=== PATIENT | female | born 1985 | race Caucasian/White ===

== ENCOUNTER 2018-06-28 07:15 | Emergency (ER) | payer OTHER ==
[2018-06-28] MEDS ORDERED: DIPHENHYDRAMINE HCL 50 MG/ML VIAL IV ONE (07:56)
[2018-06-28] MEDS ORDERED: CEFTRIAXONE INJ 1000 MG VIAL IV ONE (07:56)
[2018-06-28] MEDS ORDERED: NORMAL SALINE 1000 ML 1,000 ML IV ONE (07:58)
[2018-06-28] MEDS ORDERED: FENTANYL CITRATE INJ/PF 100 MCG/2 ML AMPUL IV ONE (08:00)
--- NOTE | 2018-06-28 08:39 | ER Document Report ---
HPI - HPI Patient complains to provider of: Dental pain, nausea and vomiting Time Seen by Provider: 06/28/18 07:44 Onset: Yesterday Onset/Duration: Worse Quality of pain: Sharp Pain Level: 5 Context: Patient presents complaining of dental pain from a fractured tooth to the right upper jaw. Patient states that she did go to an urgent care recently and was given a prescription for tramadol and amoxicillin. Patient complains of nausea and vomiting and is unable to keep her medications down. Patient denies any fever or facial swelling. Associated Symptoms: Earache, Nausea, Vomiting, Other - Dental pain. denies: Nonproductive cough Exacerbated by: Denies Relieved by: Denies Similar symptoms previously: Yes Recently seen / treated by doctor: Yes - ROS ROS below otherwise negative: Yes Systems Reviewed and Negative: Yes All other systems reviewed and negative - CONSTITUTIONAL Constitutional: DENIES: Fever - EENT EENT: REPORTS: Ear Pain Notes: Dental pain - GASTROINTESTINAL Gastrointestinal: REPORTS: Nausea, Patient vomiting. DENIES: Abdominal Pain - MUSCULOSKELETAL Musculoskeletal: DENIES: Back Pain - DERM Skin Color: Normal Skin Problems: None Past Medical History - General Information source: Patient - Social History Smoking Status: Current Every Day Smoker Chew tobacco use (# tins/day): No Smoking Education Provided: Yes Frequency of alcohol use: Social Drug Abuse: None Occupation: None Lives with: Spouse/Significant other Family History: Reviewed & Not Pertinent Patient has suicidal ideation: No Patient has homicidal ideation: No - Medical History Medical History: Negative Renal/ Medical History: Denies: Hx Peritoneal Dialysis Past Surgical History: Reports: Hx Abdominal Surgery, Hx Tonsillectomy Vertical Provider Document - CONSTITUTIONAL Agree With Documented VS: Yes Exam Limitations: No Limitations General Appearance: Mild Distress - INFECTION CONTROL TRAVEL OUTSIDE OF THE [place] IN LAST 30 DAYS: No - HEENT HEENT: Atraumatic, Normocephalic Mouth Diagram: 1 - Dental fracture, tenderness, no gingival swelling - NECK Neck: Normal Inspection, Supple. negative: Lymphadenopathy-Left, Lymphadenopathy-Right - RESPIRATORY Respiratory: Breath Sounds Normal, No Respiratory Distress - CARDIOVASCULAR Cardiovascular: Regular Rhythm, No Murmur, Tachycardia - GI/ABDOMEN Gastrointestinal: Abdomen Soft, Abdomen Non-Tender, No Organomegaly, Normal Bowel Sounds - BACK Back: Normal Inspection - MUSCULOSKELETAL/EXTREMETIES Musculoskeletal/Extremeties: MAEW - NEURO Level of Consciousness: Awake, Alert, Appropriate Motor/Sensory: No Motor Deficit - DERM Integumentary: Warm, Dry Course - Re-evaluation Re-evalutation: 06/28/18 08:39 Patient reports a dental pain is down to the level of the 3 and states that nausea is improved at this time. 06/28/18 09:18 Patient reports she is feeling better and does not need any additional pain medication while here. Will switch patient's pain medication since then she has had in the past in case her vomiting symptoms are attributed to the pain medication. Patient encouraged to have food on her stomach prior to taking her medication. - Vital Signs Vital signs: Temp Pulse Resp BP Pulse Ox 98.5 F 120 H 18 127/74 H 97 06/28/18 07:18 06/28/18 07:18 06/28/18 07:18 06/28/18 07:18 06/28/18 07:18 Discharge - Discharge Clinical Impression: Pain, dental Nausea and vomiting Qualifiers: Vomiting type: unspecified Vomiting Intractability: non-intractable Qualified Code(s): R11.2 - Nausea with vomiting, unspecified Condition: Stable Disposition: HOME, SELF-CARE Instructions: Use of Diphenhydramine, Intravenous (IV) Fluids ([facility]), Oral Narcotic Medication ([facility]), Vomiting ([facility]) Additional Instructions: Return immediately for any new or worsening symptoms Followup with your primary care provider, call tomorrow to make a followup appointment Follow-up with the oral surgeon as planned Do not take the tramadol and the Percocet together, only take one medication or the other Be sure to have food on your stomach prior to taking your medications to prevent nausea Prescriptions: Naproxen [Naprosyn 250 Nmg Tablet] 1 tab PO BID #14 tablet Oxycodone HCl/Acetaminophen [Percocet 5-325 mg Tablet] 1 tab PO ASDIR PRN #10 tablet PRN Reason: Referrals: [facility] [Provider Group] - Follow up as needed
[2018-06-28] MEDS ORDERED: KETOROLAC TROMETHAMINE INJ/PF 30 MG/1 ML SDV IV ONE (09:01)
[2018-06-28 09:31] VITALS: BP 111/66
== END 2018-06-28 09:44 | disposition home or self-care (01) ==
LOC: ER 07:15
DX: K08.89 Other specified disorders of teeth and supporting structures (principal); R11.2 Nausea with vomiting, unspecified; H92.09 Otalgia, unspecified ear; F17.200 Nicotine dependence, unspecified, uncomplicated
CPT/HCPCS: 99284; 96375; 96365; J1200; J3010; J1885; J0696; J7030